=== PATIENT | male | born 1975 | race Caucasian/White ===

== ENCOUNTER 2017-04-09 14:52 | Emergency (ER) | payer MEDICAID ==
[2017-04-09 14:55] VITALS: BP 148/81; PULSE 63; RESP 15; TEMP 99.2; O2SAT 100
[2017-04-09] MEDS ORDERED: METO50TA PO (15:13)
[2017-04-09] MEDS ORDERED: SODIUM CHLORIDE 0.9% FLUSH 10 ML FLUSH IVF PRN (15:30)
[2017-04-09] MEDS ORDERED: KETOROLAC TROMETHAMINE 60 MG/2 ML (IM) VIAL IM ONE (15:30)
--- NOTE | 2017-04-09 16:29 | RADRPT ---
EXAM DATE/TIME: 04/09/2017 15:37 [place] COMPARISON: No previous studies available for comparison. INDICATIONS : Left flank pain for one day. ORAL CONTRAST: No oral contrast ingested. RADIATION DOSE: 27.69 CTDIvol (mGy) MEDICAL HISTORY : Hematuria. SURGICAL HISTORY : Lithotripsy one month ago. ENCOUNTER: Initial ACUITY: 1 day PAIN SCALE: 6/10 LOCATION: Left flank region. TECHNIQUE: Volumetric scanning of the abdomen and pelvis was performed. Using automated exposure control and ad justment of the mA and/or kV according to patient size, radiation dose was kept as low as reasonably achievable to obtain optimal diagnostic quality images. DICOM format image data is available electro nically for review and comparison. FINDINGS: Right kidney/ureter: The right kidney is normal in size. There are multiple punctate renal stones seen throughout the ede ecting system. The largest measures approximately 2-3 cm. The examination also demonstrates a 1.6 cm exophytic lesion projecting off the right lower pole which probably represents a simple cyst. Ultraso und confirmation would be of benefit. Left kidney/ureter: The kidney is normal in size. There are 2 punctate stones measuring approximately 1 mm seen within th e lower pole. There is no hydronephrosis. The left ureter is followed throughout its course. The exam ination does demonstrate a 4 mm stone at the level of the left ureterovesicular junction. CT source data: The limited portion of lung bases visualized is clear. The appearance of the liver, spleen, pancreas and adrenal glands is within normal limits by noncontrast CT imaging. There is no retroperitoneal karma nopathy. No free air or free fluid is seen. The loops of small marked bowel are unremarkable. The oss eous structures are grossly intact. CONCLUSION: 1. The examination demonstrates a 4 mm stone in the distal left ureter at the level of the ureteroves icular junction. 2. There are numerous punctate stones seen within the collecting system of the right kidney the large st measuring approximately 2-3 mm. 3. There is a 1.6 cm exophytic lesion projecting off the right kidney probably representing a cyst. U ltrasound for confirmation would be of benefit. Steve Anna MD on April 09, 2017 at 16:24 Board Certified Radiologist. This report was verified electronically.
[2017-04-09 16:35] LABS: AUTOMATED NEUTROPHIL # 7.2 TH/MM3 (1.8-7.7); BASOPHIL # 0.1 TH/MM3 (0-0.2); BASOPHIL % 0.6 % (0.0-2.0); EOSINOPHIL # 0.3 TH/MM3 (0-0.4); EOSINOPHIL % 3.2 % (0.0-4.0); HEMATOCRIT 44.6 % (39.0-51.0); HEMO FLAGS DIFF FINAL; LYMPHOCYTE # 2.1 TH/MM3 (1.0-4.8); MEAN CELL VOLUME 88.7 FL (80.0-100.0); MEAN CORPUSCULAR HEMOGLOBIN 29.6 PG (27.0-34.0); MEAN CORPUSCULAR HGB CONC 33.3 % (32.0-36.0); MONO % 8.9 % (0.0-8.0); NEUT % 67.3 % (16.0-70.0); PLATELET COUNT 287 TH/MM3 (150-450); RED BLOOD COUNT 5.03 MIL/MM3 (4.50-5.90); RED CELL DISTRIBUTION WIDTH 13.6 % (11.6-17.2); WHITE BLOOD COUNT 10.7 TH/MM3 (4.0-11.0)
[2017-04-09 16:53] LABS: BICARBONATE 28.6 MEQ/L (21.0-32.0); POTASSIUM 4.3 MEQ/L (3.5-5.1)
[2017-04-09 16:59] LABS: BACTERIA, URINE FEW /hpf; BLOOD, URINE LARGE (NEG); COMMENT (UR) CULT NOT INDICATED; CULTURE IF INDICATED CULT NOT INDICATED; GLUCOSE,URINE NEG (NEG); KETONE, URINE TRACE mg/dL (NEG); NITRITE,URINE NEG (NEG); URINE COLOR RED (YELLW/STRAW)
[2017-04-09] MEDS ORDERED: TAMSULOSIN HCL 0.4 MG CAP PO ONE (17:00)
[2017-04-09] MEDS ORDERED: TAMS5CAP PO (17:39)
--- NOTE | 2017-04-09 17:39 | PD ---
HPI Chief Complaint: Abdominal Pain Time Seen by Provider: 15:07 Travel History International Travel<30 days: No Contact w/Intl Traveler<30days: No Traveled to known affect area: No History of Present Illness HPI 42-year-old male came to the emergency room with history of left flank pain that started this morning just prior to coming to the emergency room. Patient has history of kidney stone in about a month ago had lithotripsy done in [place]. They are here vacationing. Patient also started noticing hematuria. Concern him and so he came to the emergency room. Patient is on Suboxone and does not want any IV or opiates. He looked anxious and moderate distress. No aggravating or relieving factors. Patient expresses the pain radiating down to the left lower quadrant. [facility] Past Medical History Narrative Medical List of his past medical, surgical, social and family history is reviewed from the nursing note. Hypertension: Yes Tetanus Vaccination: < 5 Years Past Surgical History Other Surgery: Yes (urnia) Social History Alcohol Use: No Tobacco Use: Yes Substance Use: No Allergies-Medications (Allergen,Severity, Reaction): Coded Allergies: penicillin G (Verified Allergy, Severe, 04/09/17) Comments List of his allergies reviewed from the nursing note. Reported Meds & Prescriptions Reported Meds & Active Scripts Active Flomax (Tamsulosin HCl) 0.4 Mg Cap 0.4 Mg PO HS Reported Metoprolol Tartrate 50 Mg Tab 50 Mg PO BID Narrative Medication List of his home medications reviewed from the nursing note. Review of Systems Except as stated in HPI: all other systems reviewed are Neg Genitourinary: Positive: Hematuria, Flank Pain Physical Exam Narrative GENERAL: Awake, alert, moderate distress SKIN: Focused skin assessment warm/dry. HEAD: Atraumatic. Normocephalic. EYES: Pupils equal and round. No scleral icterus. No injection or drainage. ENT: No nasal bleeding or discharge. Mucous membranes pink and moist. NECK: Trachea midline. No JVD. CARDIOVASCULAR: Regular rate and rhythm. No murmur appreciated. RESPIRATORY: No accessory muscle use. Clear to auscultation. Breath sounds equal bilaterally. GASTROINTESTINAL: Abdomen soft, non-tender, nondistended. Hepatic and splenic margins not palpable. MUSCULOSKELETAL: No obvious deformities. No clubbing. No cyanosis. No edema. NEUROLOGICAL: Awake and alert. No obvious cranial nerve deficits. Motor grossly within normal limits. Normal speech. PSYCHIATRIC: Appropriate mood and affect; insight and judgment normal. Data Data Last Documented VS Orders Orders Complete Blood Count With Diff (04/09/17 15:30) Basic Metabolic Panel (Bmp) (04/09/17 15:30) Urinalysis - C+S If Indicated (04/09/17 15:30) Ct Abd/Pel W/O Iv Contrast (04/09/17 15:30) Ecg Monitoring (04/09/17 15:30) Iv Access Insert/Monitor (04/09/17 15:30) Sodium Chloride 0.9% Flush (Ns Flush) (04/09/17 15:30) Ketorolac Inj (Toradol Inj) (04/09/17 15:30) Tamsulosin (Flomax) (04/09/17 17:00) Ed Discharge Order (04/09/17 17:38) Labs Laboratory Tests Test 04/09/17 15:45 White Blood Count 10.7 TH/MM3 Red Blood Count 5.03 MIL/MM3 Hemoglobin 14.9 GM/DL Hematocrit 44.6 % Mean Corpuscular Volume 88.7 FL Mean Corpuscular Hemoglobin 29.6 PG Mean Corpuscular Hemoglobin Concent 33.3 % Red Cell Distribution Width 13.6 % Platelet Count 287 TH/MM3 Mean Platelet Volume 7.9 FL Neutrophils (%) (Auto) 67.3 % Lymphocytes (%) (Auto) 20.0 % Monocytes (%) (Auto) 8.9 % Eosinophils (%) (Auto) 3.2 % Basophils (%) (Auto) 0.6 % Neutrophils # (Auto) 7.2 TH/MM3 Lymphocytes # (Auto) 2.1 TH/MM3 Monocytes # (Auto) 1.0 TH/MM3 Eosinophils # (Auto) 0.3 TH/MM3 Basophils # (Auto) 0.1 TH/MM3 CBC Comment DIFF FINAL Differential Comment Urine Color RED Urine Turbidity HAZY Urine pH 6.0 Urine Specific [place] 1.019 Urine Protein 30 mg/dL Urine Glucose (UA) NEG mg/dL Urine Ketones TRACE mg/dL Urine Occult Blood LARGE Urine Nitrite NEG Urine Bilirubin NEG Urine Urobilinogen LESS THAN 2.0 MG/DL Urine Leukocyte Esterase SMALL Urine RBC /hpf Urine WBC 7 /hpf Urine Bacteria FEW /hpf Microscopic Urinalysis Comment CULT NOT INDICATED Blood Urea Nitrogen 10 MG/DL Creatinine 0.80 MG/DL Random Glucose 91 MG/DL Calcium Level 9.1 MG/DL Sodium Level 141 MEQ/L Potassium Level 4.3 MEQ/L Chloride Level 108 MEQ/L Carbon Dioxide Level 28.6 MEQ/L Anion Gap 4 MEQ/L Estimat Glomerular Filtration Rate 106 ML/MIN MDM Medical Decision Making Medical Screen Exam Complete: Yes Emergency Medical Condition: Yes Medical Record Reviewed: Yes Differential Diagnosis Ureteral colic, UTI, pyelonephritis Narrative Course 5:30 PM blood test results of back and within acceptable limit. UA suggestive of significant hematuria. CT scan is done and shows a 4 mm stone in the UVJ. He was given Toradol initially upon arrival. I have given him some Flomax here and explained to him about the stone. In my opinion since the stone is already at the UVJ and is 4 mm he fell he should be able to pass. Patient understands and he will be discharged home. Procedures EKG Prior to Arrival: No Diagnosis Primary Impression: Ureteral colic Additional Impression: Hematuria Qualified Codes: R31.9 - Hematuria, unspecified Referrals: Primary Care Physician Additional Instructions: Please take the medication as per the prescription direction. Drink lots of fluid. Continue taking her own pain medication for pain relief. Return to the ER if the condition worsens or any other new concerns. Med/Other Pt SpecificInfo: Prescription(s) given Scripts Tamsulosin (Flomax) 0.4 Mg Cap 0.4 MG PO HS for Manage Prostate Problems, #10 CAP 0 Refills Prov: Saurav Grider MD 04/09/17 Disposition: DISCHARGE HOME Condition: Stable Saurav Grider MD Apr 09, 2017 17:39
== END 2017-04-09 18:43 | disposition home or self-care (01) ==
LOC: NEPC 14:52
DX: N23 Unspecified renal colic (principal); R31.9 Hematuria, unspecified; I10 Essential (primary) hypertension; Z79.899 Other long term (current) drug therapy; Z88.0 Allergy status to penicillin; Z72.0 Tobacco use
CPT/HCPCS: 74176; 80048; 81001; 85025; 96372; 99285; J1885